=== PATIENT | female | born 1995 | race Caucasian/White ===

== ENCOUNTER 2024-09-03 12:01 | Emergency (ER) | payer OTHER ==
[~2024-09-03] VITALS: Ht 175.3 cm; Wt 100.0 kg
[2024-09-03 12:02] VITALS: TEMP 97.5
--- NOTE | 2024-09-03 13:01 | ELECTROCARDIOGRAPH REPORT ---
[facility] Test Date: 2024-09-03 Test Time: 12:59:54 Pat Name: MARIA D PAK Department: [facility]- Patient ID: [facility]-[id number] Room: Gender: F [employer]: : 1995 Requested By: ANTONIO FOLEY Order Number: [id number] Reading MD: Measurements Intervals [place] Rate: 75 P: 10 MT: 145 QRS: 52 QRSD: 93 T: 24 QT: 382 QTc: 427 Interpretive Statements Sinus rhythm Please click the below link to view image of tracing.
[2024-09-03 13:04] LABS: URINE HCG NEGATIVE (NEG)
[2024-09-03 13:09] LABS: LEUKOCYTE ESTERASE ,URINE NEGATIVE (Neg); NITRITES, URINE NEGATIVE (Neg); OCCULT BLOOD,URINE SMALL (Neg)
[2024-09-03 13:14] LABS: UA COLLECTION TYPE CLN CATCH MIDSTREAM
[2024-09-03 13:14] LABS: MEAN PLATELET VOLUME 8.0 FL (7.4-10.4); RED CELL DISTRIBUTION WIDTH 13.2 % (11.5-14.5)
[2024-09-03 13:16] LABS: MUCUS STRANDS FEW /LPF (Neg); SQUAMOUS EPITHELIAL CELL,UR MANY /LPF (FEW)
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
[2024-09-03 13:27] LABS: CREATININE 0.87 MG/DL (0.40-0.90); TOTAL CARBON DIOXIDE 29.3 MMOL/L (24-32); eCRCL 99 ML/MIN; eGFR 76 ML/MIN
[2024-09-03] MEDS ORDERED: iohexol 300mg/ml 100ml inj. ONE (13:31)
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
[2024-09-03 14:37] VITALS: O2SAT 100
[2024-09-03 15:57] VITALS: BP 117/77; PULSE 76; RESP 18
== END 2024-09-03 16:00 | disposition home or self-care (01) ==
LOC: ER 12:02
DX: S30.1XXA Contusion of abdominal wall, initial encounter (principal); F07.81 Postconcussional syndrome; R11.0 Nausea; X58.XXXA Exposure to other specified factors, initial encounter; Y93.89 Activity, other specified; Y92.89 Other specified places as the place of occurrence of the external cause; Y99.8 Other external cause status
CPT/HCPCS: 36415; 70450; 71260; 74177; 80053; 81001; 81025; 83690; 85025; 93005; 99285; Q9967